=== PATIENT | male | born 1980 | race Caucasian/White ===

== ENCOUNTER → 2022-10-11 14:57 | Outpatient (CLI) | payer BC, SELFPAY ==
--- NOTE | ~2022-10-11 | XR_ITS ---
EXAMINATION: XR chest 2V DATE: 10/11/2022 15:12 INDICATION: Cough, unspecified. TECHNIQUE: Frontal and lateral views of the chest were obtained on 3 radiographs. COMPARISON: Chest single view 02/22/2015 FINDINGS: There is no pneumonia, pleural effusion, or pneumothorax. The heart size is normal. IMPRESSION: 1. No acute cardiopulmonary disease. Reviewed, dictated and finalized at location A. T OFFICE ATTENDANT
== END ==
PROVIDERS: PCP Family Medicine; Visit Provider Family Medicine
DX: R05.9 Cough, unspecified (principal)
CPT/HCPCS: 71046

== ENCOUNTER 2023-12-17 08:00 | Emergency (ER) | payer BC, SELFPAY ==
[2023-12-17 08:05] VITALS: BP 116/80; PULSE 130; RESP 20; TEMP 36.3; O2SAT 100
--- NOTE | 2023-12-17 08:05 | ED.GENADULT ---
HPI - General Adult General Chief complaint: Skin/Abscess/Foreign Body Stated complaint: Abscess Source: patient, RN notes reviewed and old records reviewed Mode of arrival: ambulatory Limitations: no limitations History of Present Illness HPI narrative: 43-year-old male patient presents to [facility] with complaint of abscess to perineal area this started several days ago. Patient was seen by primary care physician on 12/15/2023 and started on doxycycline and instructed to go to the ER for worsening symptoms. Patient states pain is worsening making it difficult to sit or walk. Related Data Allergies Allergy/AdvReac Type Severity Reaction Status Date / Time amoxicillin Allergy Unknown Flu like Verified 12/17/23 08:46 symptoms Usyhsfi-CPD-TuO Reductase Allergy Unknown elevated Verified 12/17/23 08:46 Inhibitor LFT's [Tiauxwp-Brq-Emc Reductase Inhibitor] bupropion AdvReac eye pain Verified 12/17/23 08:46 Review of Systems Constitutional: Constitutional: Reports no additional constitutional complaints, Denies body ache(s), Denies chills, Denies fatigue, Denies fever(s) and Denies headache(s) Eyes: Eyes: Reports no additional eye complaints and Denies blurry vision ENT: Reports system reviewed and no additional complaints, except as documented, Denies vertigo, Denies dizziness, Denies ear discharge, Denies otalgia, Denies facial pain, Denies headache(s), Denies nasal congestion, Denies nasal discharge, Denies sinus pain, Denies sinus pressure and Denies sore throat Cardiovascular: Cardiovascular: Reports no additional cardiovascular complaints, Denies chest pain, Denies chest pain at rest, Denies rapid heart rate and Denies dyspnea Respiratory: Respiratory: Reports no additional respiratory complaints, Denies chest congestion, Denies cough, Denies pain on inspiration, Denies pain with cough and Denies dyspnea Gastrointestinal: Gastrointestinal: Denies abdominal pain, Denies diarrhea, Denies nausea and Denies vomiting Genitourinary: Comments: abscess and perineal area Integumentary/Breasts: Skin/Breast: Reports furuncle and Denies rash Neurologic: Reports system reviewed and no additional complaints, except as documented, Denies vertigo, Denies dizziness and Denies headache(s) Endocrine: Endocrine: Denies fatigue PMFSH Past Medical History Medical History Depression with anxiety Dyslipidemia Vitamin D deficiency Surgical History Surgical History History of ankle surgery 1998- ORIF of left ankle fracture Family History Family History Father Family history of diabetes mellitus in first degree relative Diabetes mellitus Social History Social History Smoking status: Never smoker Alcohol intake: current Alcohol use details: occasionally Substance use: never Substance use type: does not use Lack of Transportation: No Lack of Food: Never True Current Housing: I Have Housing Concerned About Future Housing: No Difficulty Paying Gas/Electric Bills: No Difficulty Paying for Meds: No Currently Unemployed: No Education: Master's Degree or Higher Difficulty w/ Childcare or Family Care: No Living arrangements: with family Additional living arrangements comments: and Son Occupation/Education: occupation Gender identity (if verbalized by the patient): Male Sexual Orientation (if Verbalized by the Patient): Straight or Heterosexual Spiritual care concerns: No Agree to blood products: Yes Comments At the time of my signature, I reviewed and agree with the nursing past medical, surgical, social, and family history. There is no relevant family history pertinent to the patient complaint. Exam Const: General: cooperative, healthy
== END 2023-12-17 08:53 | disposition short-term general hospital (02) ==
PROVIDERS: Emergency Provider Registered Nurse; PCP Family Medicine
DX: L02.215 Cutaneous abscess of perineum (principal); E78.5 Hyperlipidemia, unspecified
CPT/HCPCS: 99212; G0463

== ENCOUNTER 2023-12-17 08:44 | Emergency (ER) | payer BC, SELFPAY ==
--- NOTE | ~2023-12-17 | CT_ITS ---
EXAMINATION: CT abdomen pelvis w con DATE: 12/17/2023 10:13 INDICATION: Perianal versus perineal abscess TECHNIQUE: Computed tomography (CT) of the abdomen and pelvis was performed with 100 mL Omnipaque-350 intravenous contrast. Automated exposure control and iterative reconstruction technique were employe d. The dose-length product was 699.56 mGy-cm. COMPARISON: None FINDINGS: Respiratory motion and mild dependent atelectasis in the lower lungs. Heart size is normal. No perica rdial or pleural effusion. Liver, gallbladder, spleen, pancreas, bilateral adrenal glands and kidneys are normal. Bladder is normal. Bowels including the appendix are normal. There is a relatively super ficial loculated peripherally enhancing subcutaneous perianal abscess along the anterior margin of th e anus which measures 4.2 x 3.5 x 3.2 cm. No evident transgression of the external inguinal sphincter or involvement of the deeper intersphincteric space. There is additional region of phlegmonous villaseñor e without organized peripheral which extends an additional 3.8 cm anteriorly from the abscess in the perineal subcutaneous fat and which measures 1.5 cm left to right and 2.7 cm craniocaudally. No evide nt involvement of the scrotum or penis. No evident soft tissue gas to suggest necrotizing fasciitis. No free intraperitoneal gas or fluid or intra-abdominal/pelvic abscess. No pathologically enlarged ab dominal or pelvic lymphadenopathy. Mild lower lumbar levocurvature with mild spondylosis. IMPRESSION: 1. 4.2 x 3.5 x 3.2 cm superficial anterior perianal abscess. Reviewed, dictated and finalized at location A. R OPERATOR
[2023-12-17 08:51] VITALS: BP 124/93; PULSE 70; RESP 20; TEMP 36.4; O2SAT 100
--- NOTE | 2023-12-17 09:10 | ED.SKABFB ---
HPI - Skin/Abscess/Foreign Bdy General Chief complaint: Skin/Abscess/Foreign Body Stated complaint: abscess Time Seen by Provider: 12/17/23 08:49 History of Present Illness HPI narrative: This is a 43-year-old male, with history of hyperlipidemia, who presents emergency department complaining painful abscess of the rectum. The patient states 5 days ago, he developed a small painful nodule at the rectum. He was seen by primary care doctor and started on doxycycline. Since then, the since grown and become significantly more painful. He now rates his pain 9/10, described as sharp and pressure-like. This is associated with flu-like symptoms. He was seen at an urgent care today and referred for evaluation. Related Data Allergies Allergy/AdvReac Type Severity Reaction Status Date / Time amoxicillin Allergy Unknown Flu like Verified 12/17/23 08:46 symptoms Dettfzz-IWV-GsC Reductase Allergy Unknown elevated Verified 12/17/23 08:46 Inhibitor LFT's [Cagkvzi-Aoh-Vcb Reductase Inhibitor] bupropion AdvReac eye pain Verified 12/17/23 08:46 Review of Systems Review of Systems: CONSTITUTIONAL: Subjective fevers, sweats and chills CARDIOVASCULAR: Denies chest pain, palpitations, or edema. RESPIRATORY: Denies cough or dyspnea. GASTROINTESTINAL: perirectal pain and swelling Denies abdominal pain, nausea, vomiting, or diarrhea. GENITOURINARY: Denies dysuria or hematuria. SKIN: Denies rash or itching. MUSCULOSKELETAL: Denies back pain, joint pain, or myalgia. NEUROLOGIC: Denies headache, numbness, dizziness, or weakness. PSYCHIATRIC: Denies anxiety or depression. [facility] Past Medical History Medical History Depression with anxiety Dyslipidemia Vitamin D deficiency Surgical History Surgical History History of ankle surgery 1998- ORIF of left ankle fracture Family History Family History Father Family history of diabetes mellitus in first degree relative Diabetes mellitus Social History Social History Smoking status: Never smoker Alcohol intake: current Alcohol use details: occasionally Substance use: never Substance use type: does not use Lack of Transportation: No Lack of Food: Never True Current Housing: I Have Housing Concerned About Future Housing: No Difficulty Paying Gas/Electric Bills: No Difficulty Paying for Meds: No Currently Unemployed: No Education: Master's Degree or Higher Difficulty w/ Childcare or Family Care: No Living arrangements: with family Additional living arrangements comments: and Son Occupation/Education: occupation Gender identity (if verbalized by the patient): Male Sexual Orientation (if Verbalized by the Patient): Straight or Heterosexual Spiritual care concerns: No Agree to blood products: Yes Exam Narrative: GENERAL: Well-developed, well-nourished, and in no acute distress. diaphoretic HEAD: Normocephalic, atraumatic. EYES: PERRLA and EOMI. CHEST: Clear to auscultation. No respiratory distress. No wheezes rales or rhonchi HEART: Tachycardic with regular rhythm. No murmur heard. Normal peripheral pulses. ABDOMEN: Soft, nontender, nondistended, normal active bowel sounds. : Tender, fluctuant mass in the perineum, extending from the anus at the 12 o'clock position approximately 5cm into the perineum. There is no palpable crepitus EXTREMITIES: Normal range of motion. No edema. SKIN: Warm, dry, no rash. NEURO: Alert and oriented x3. No focal deficit. Moving all 4 limbs spontaneously PSYCH: Normal mood and affect. Course Course Emergency Course: 13:35 - White blood cell count elevated at 13.1. CBC otherwise unremarkable. Labs demonstrate creatinine elevation of 1.6, consistent with dehydratio
[2023-12-17] MEDS: SODIUM CHLORIDE 0.9% IV 2,000 ML 999 ML IV CONT (09:42)
[2023-12-17] MEDS: MORPHINE SULFATE (*CRX) 4 MG/ML INJ IV PUSH ×2 (09:43→12:25)
[2023-12-17] MEDS: ONDANSETRON INJ 4 MG/2 ML VIAL IV PUSH (09:43)
[2023-12-17 10:08] LABS: Basophils Percent Auto 0.2 % (0.2-1.2); Eosinophils Absolute Auto 0.1 K/mm3 (0-0.3); Eosinophils Percent Auto 0.4 % (0-4.4); Hematocrit 50.9 % (42.0-52.0); Hemoglobin 17.4 g/dL (14.0-18.0); Immature Granulocyte Absolute 0.05 K/mm3 (0.00-0.031); Immature Granulocyte Percent A 0.4 % (0-0.5); Lymphocytes Absolute Auto 1.52 K/mm3 (0.9-3.2); Lymphocytes Percent Auto 11.6 % (18.3-44.2); Mean Corpuscular HGB Conc 34.2 g/dl (32-36); Mean Corpuscular Hemoglobin 29.2 pg (26-34); Mean Corpuscular Volume 85.4 fl (80-100); Mean Platelet Volume 8.8 fl (7.4-10.4); Monocytes Absolute Auto 1.3 K/mm3 (0.1-0.6); Monocytes Percent Auto 9.8 % (2.6-8.5); Neutrophils Absolute Auto 10.2 K/mm3 (1.3-6.7); Neutrophils Percent Auto 77.6 % (45.5-73.1); Platelet Count Result 259 k/mm3 (150-375); Red Blood Count 5.96 M/mm3 (4.6-6.20); Red Cell Distribution Width 12.3 % (11.5-14.5); White Blood Count 13.1 K/mm3 (4.5-10.0)
[2023-12-17 10:08] LABS: Estimated CRCL calculation 58 ml/min; Estimated Glomerular Filt Rate 48
[2023-12-17 10:20] LABS: Lactic Acid Reflex 1.3 mmol/L (0.7-2.0)
[2023-12-17 10:20] LABS: INR 0.9; Prothrombin Time 12.4 Seconds (11.1-14.7)
[2023-12-17 10:26] LABS: Alanine Aminotransferase 24 U/L (6-50); Alkaline Phosphatase 75 U/L (38-126); Anion Gap 14 mmol/L (8-16); Aspartate Amino Transferase 24 U/L (17-59); Bilirubin,Total 0.7 mg/dL (0.2-1.3); Blood Urea Nitrogen 23 mg/dL (9-20); Calcium 10.4 mg/dL (8.4-10.2); Carbon Dioxide 27 mmol/L (22-30); Chloride 99 mmol/L (98-107); Estimated CRCL calculation 62 ml/min; Estimated Glomerular Filt Rate 51; Glucose 126 mg/dL (65-110); Sodium 140 mmol/L (137-145)
[2023-12-17 10:31] LABS: Potassium 3.8 mmol/L (3.4-5.0)
[2023-12-17] MEDS: CEFEPIME 2 GM/NS 50 ML 2 GM/50 ML BAG IVPB (10:37)
[2023-12-17] MEDS: metroNIDAZOLE 500 MG/ISO 100ML 500 MG/100 ML BAG 100 MG IVPB (10:40)
[2023-12-17 10:42] VITALS: BP 111/74; PULSE 77; RESP 18; TEMP 36.9; O2SAT 98
[2023-12-17] MEDS: VANCOMYCIN 1,250 MG/NS 250 ML 1,250 MG/250 ML BAG 166.67 MG IVPB (11:33)
[2023-12-17 12:53] VITALS: BP 107/55; PULSE 78; RESP 18; TEMP 37; O2SAT 98
[2023-12-17] MEDS: VANCOMYCIN 1,000 MG/NS 250 ML 1,000 MG/250 ML BAG 250 MG IVPB (13:40)
[2023-12-17 15:16] VITALS: BP 104/55; PULSE 67; RESP 18; TEMP 36.8; O2SAT 100
== END 2023-12-17 15:27 | disposition home or self-care (01) ==
PROVIDERS: Emergency Provider Preventive Medicine Aerospace Medicine; PCP Family Medicine
DX: K61.1 Rectal abscess (principal); E78.5 Hyperlipidemia, unspecified; E55.9 Vitamin D deficiency, unspecified; F41.8 Other specified anxiety disorders
CPT/HCPCS: 36415; 46040; 74177; 80053; 83605; 85025; 85610; 87040; 96365; 96366; 96367; 96375; 96376; 99284; J0692; J1836; J2270; J2405; J3370; J7030; Q9967

== ENCOUNTER 2025-02-23 08:03 | Emergency (ER) | payer BC, SELFPAY ==
[2025-02-23 08:16] VITALS: BP 98/75; PULSE 88; RESP 16; TEMP 35.9; O2SAT 99
--- NOTE | 2025-02-23 08:58 | ED_ITS ---
HPI - Skin/Abscess/Foreign Bdy General Chief complaint: Skin/Abscess/Foreign Body Stated complaint: Abscess Time Seen by Provider: 02/23/25 08:49 Source: patient Mode of arrival: ambulatory Limitations: no limitations History of Present Illness HPI narrative: Patient presents to clinic today with complaints of an abscess to his perineum x 2 days. He does report this is the third time that he had this happen. He has been taking Motrin for pain with minimal relief. Related Data Allergies Allergy/AdvReac Type Severity Reaction Status Date / Time amoxicillin Allergy Unknown Flu like Verified 02/23/25 08:19 symptoms Cwbefct-PWI-NyD Reductase Allergy Unknown elevated Verified 02/23/25 08:19 Inhibitor (Xozttnc-Ykf-Pqx LFT's Reductase Inhibitor) bupropion AdvReac eye pain Verified 02/23/25 08:19 Review of Systems Review of Systems: CONSTITUTIONAL: Denies body aches, fever, chills, or sweats. EYES: Denies visual changes, redness, or discharge. ENT: Denies rhinorrhea, congestion CARDIOVASCULAR: Denies chest pain, palpitations, or edema. RESPIRATORY: Denies cough or dyspnea. GASTROINTESTINAL: Denies abdominal pain, nausea, vomiting, or diarrhea. SKIN: ?Reports pain to perineum. MUSCULOSKELETAL: Denies back pain, joint pain, or myalgia. NEUROLOGIC: Denies headache, numbness, tingling, or weakness. All systems reviewed & are unremarkable except as noted in HPI and below PMFSH Past Medical History Medical History Vitamin D deficiency Dyslipidemia Depression with anxiety Surgical History Surgical History History of ankle surgery 1998- ORIF of left ankle fracture Family History Family History Father Family history of diabetes mellitus in first degree relative Diabetes mellitus Social History Social History Smoking status: Never smoker Alcohol intake: current Alcohol use details: occasionally Substance use: never Substance use type: does not use Lack of Transportation: No Lack of Food: Never True Current Housing: I Have Housing Concerned About Future Housing: No Difficulty Paying Gas/Electric Bills: No Difficulty Paying for Meds: No Currently Unemployed: No Education: Master's Degree or Higher Difficulty w/ Childcare or Family Care: No Living arrangements: with family Additional living arrangements comments: and Son Occupation/Education: occupation Gender identity (if verbalized by the patient): Male Sexual Orientation (if Verbalized by the Patient): Straight or Heterosexual Spiritual care concerns: No Agree to blood products: Yes Comments At time of signature, I have reviewed and agree with nursing past medical, surgical, social and family history unless otherwise noted. Please see nursing chart for further information. There is no relevant family history pertinent to the presenting complaint. Exam Narrative: GENERAL: Well-appearing HEAD: Normocephalic, atraumatic. NECK: Supple. No lymphadenopathy CHEST: Clear to auscultation. HEART: Regular rate and rhythm. SKIN: Warm, dry. 0.5cm abscess noted to left of perineal groove with no induration. Perineal groove tenderness noted. NEURO: ?Alert and oriented x3.? Course Course Level of Care: Express Care Visit Vital Signs Vital signs: Vital Signs Temperature 96.6 F L 02/23/25 08:16 Pulse Rate 88 02/23/25 08:16 Respiratory Rate 16 02/23/25 08:16 Blood Pressure 98/75 L 02/23/25 08:16 Pulse Oximetry 99 02/23/25 08:16 Temperature 96.6 F L 02/23/25 08:16 Pulse Rate 88 02/23/25 08:16 Respiratory Rate 16 02/23/25 08:16 Blood Pressure 98/75 L 02/23/25 08:16 Pulse Oximetry 99 02/23/25 08:16 Reviewed Transfer Transfered to: [place] Transfer comments: Pt is agreeable to transfer. Requests transfer to [facility] via private vehicle. Risks of transportation reviewed with pt including injury, worsening of condition and . will be driving pt; Report called to hospital, spoke with Dr. Fernandez , accepting physician. Pt is in stable condition at time of transfer. Advised to remain NPO and go directly to the hospital. MDM - Skin/Abscess/Foreign Bdy MDM Narrative Medical decision making narrative: Discussed physical exam findings with patient. Due to location and severity, advised patient to go to ER. Patient agreeable and would like to go to [facility]. Differential Diagnosis Differential diagnosis: Likely abscess of skin or subcutaneous tissue and marisa lulitis Critical Care Time Critical Care Time Critical Care Time: No Discharge Plan Discharge Clinical Impression: Perineal abscess Patient Disposition: Acute Care Hospital Condition: Stable Patient Language: Kenyan Prescriptions: No Action atorvastatin [Lipitor] 10 mg tablet 10 mg PO QHS Qty: 90 1RF buspirone 5 mg tablet 5 mg PO BID PRN (Reason: anxiety) Qty: 180 1RF allopurinol 100 mg tablet 100 mg PO DAILY Qty: 90 1RF propranolol 10 mg tablet 10 mg PO BID PRN (Reason: social anxiety) Qty: 180 0RF Follow-up/Referrals: PHYSICIAN,PBX OPERATOR [Primary Care Provider] -
== END 2025-02-23 09:00 | disposition short-term general hospital (02) ==
DX: L02.215 Cutaneous abscess of perineum (principal); E78.5 Hyperlipidemia, unspecified; F41.8 Other specified anxiety disorders
CPT/HCPCS: 99212; G0463

== ENCOUNTER 2025-02-23 09:15 | Observation (INO) | payer BC, SELFPAY ==
--- NOTE | ~2025-02-23 | CT_ITS ---
EXAMINATION: CT abdomen pelvis w con DATE: 02/23/2025 10:51 INDICATION: Perineal abscess TECHNIQUE: Computed tomography (CT) of the abdomen and pelvis was performed with 100 mL Omnipaque-350 intravenous contrast. Automated exposure control and iterative reconstruction technique were employe d. The dose-length product was 442.07 mGy-cm. COMPARISON: None FINDINGS: Mild dependent atelectasis in bilateral lower lobes. Heart size is normal. No pericardial or pleural effusion. Liver, gallbladder, spleen, pancreas, bilateral adrenal glands and kidneys are normal. Norm al retrocecal appendix. Bowels are normal with no obstruction. 1.8 x 1.3 x 1.8 cm superficial subcuta neous abscess along the anterior margin of the anus which appears to remain superficial to the stonecutter hand al sphincter. No free intraperitoneal gas or fluid. No pathologically enlarged abdominal or pelvic ly mphadenopathy. Minimal lumbar lower thoracic spondylosis. IMPRESSION: 1. 1.8 x 1.8 x 1.3 cm superficial perianal abscess. Reviewed, dictated and finalized at location A.
--- OUTSIDE RECORDS SUMMARY | 2025-02-23 09:17 | XMS_ITS | Encounter Summary ---
Author Organization [facility] Address [address] [place] [address] Care Team Providers Care Scrap Shear Operator Name Role Phone Ramirez Marcus MD Primary Care Provider [phone] Encounter Details Date Type Department Care Team (Late st Contact Info) Description 12/14/2023 Lab Requisition [facility] - DermPath Lab [address] [place] [id number] Agnes Cook MD [address] [facility] [address] [place] [address] Social History Tobacco Use Types Packs/Day Years Used Date Smoking Tobacco: Never Assessed Sex and Gender Information Value Date Recorded Sex Assigned at Male 06/07/2021 8:09 PM CDT Legal Sex Male 11:37 AM SHOW HOST/HOSTESS Gender Identity Male 06/07/2021 8:09 PM CDT Sexual Orientation Straight 06/07/2021 8: 09 PM CDT documented as of this encounter Plan of Treatment Not on file documented as of this encounter Procedures Procedure Name Priority Date/Time Associated Diagnosis Comments DERMATOPATHOLOGY Routine 12/14/2023 8:58 AM SHOW HOST/HOSTESS documented in this encounter Results * DERMATOPATHOLOGY (12/14/2023 8:58 AM SHOW HOST/HOSTESS) Case Report Dermatopathology Report Case: [id number] Authorizing Provider: Agnes Cook MD Collected: 12/14/2023 08:58 AM Ordering Location: [facility] DermPath Lab Received: 12/15/2023 06:45 AM Pathologist: Katherin Rodrigues MD Specimen: Skin, scalp 4 1:03 PM [facility] DERMATOPATHOLOGY LABORATORY Final Diagnosis Specimen A. SKIN, scalp: TRICHILEMMAL (PILAR) CYST (L72.12) 4 1:03 PM [facility] DERMATOPATHOLOGY LABORATORY Clinical History Pilar Cyst 4 1:03 PM [facility] DERMATOPATHOLOGY LABORATORY Gross Description Specimen A: Received is one formalin filled container labeled with the patient's name and designated scalp. The specimen consists of a 4x4x9 mm piece of skin. The specimen is serially sectioned and a account services representative section is submitted in cassette 1. Jar 1. 4 1:03 PM [facility] DERMATOPATHOLOGY LABORATORY Microscopic Description Specimen A. SKIN, scalp: Sections show a cyst that is lined by stratified squamous epithelium that shows trichilemmal keratinization (no granular layer). There is homogeneous pink keratin within the cyst. 1:03 PM [facility] DERMATOPATHOLOGY LABORATORY Disclaimer An external and internal positive and negative controls are appropriate for the histochemical, immunohistochemical and immunofluorescence stain(s) in this case (if any), except where stated explicitly. The performance characteristics of the stain(s) cited in this report were developed and its performance characteristic determined by the Dermatopathology Laboratory at [facility], directed by Dr. Emmanuel Otero. These tests need not be, and therefore are not, approved by the [place] Food and Drug Administration. The tests are used for clinical purposes. Billing Codes Specimen Charges Stain Charges 06920 1 4 1:03 PM [facility] DERMATOPATHOLOGY LABORATORY Embedded Images 4 1:03 PM [facility] DERMATOPATHOLOGY LABORATORY Pathology/Cytolo gy TISSUE SPECIMEN FROM SKIN / Unknown 12/14/2023 8:58 AM SHOW HOST/HOSTESS 12/15/2023 6:45 AM SHOW HOST/HOSTESS us Agnes Cook MD LAB - PATHOLOGY/CYTOLOGY ORD ERABLES Final Result DERMATOPATHOLOGY LABORATORY [facility] - Department of Dermatology [facility] Medicine [facility] [facility] 3rd [address] [phone] documented in this encounter Visit Diagnoses Not on filedocumented in this encounter Care Teams Scrap Shear Operator Relationship Specialty Start Date End Date Ramirez Marcus MD [address] [place] [address] PCP - General 07/20/18 documented as of this encounter
--- OUTSIDE RECORDS SUMMARY | 2025-02-23 09:17 | XMS_ITS | Encounter Summary ---
Author Organization [facility] Address [address] [facility] [place] [address] Care Team Providers Care Yarn Man Name Role Phone Ramirez Marcus MD Primary Care Provider [phone] Encounter Details Date Type Department Care Team (Late st Contact Info) Description 07/23/2018 Lab Requisition [facility] Care DermPath Lab [address] [facility], [place] [address] Sarah Rios DO [address] [facility] [address] [place] [address] Social History Tobacco Use Types Packs/Day Years Used Date Smoking Tobacco: Never Assessed Sex and Gender Information Value Date Recorded Sex Assigned at Male 06/07/2021 8:09 PM CDT Legal Sex Male 11:37 AM SECURITY ATTENDANT Gender Identity Male 06/07/2021 8:09 PM CDT Sexual Orientation Straight 06/07/2021 8: 09 PM CDT documented as of this encounter Plan of Treatment Not on file documented as of this encounter Procedures Procedure Name Priority Date/Time Associated Diagnosis Comments DERMATOPATH TECHNICAL REPORT Routine 07/20/2018 12:00 AM CDT documented in this encounter Results * DERMATOPATH TECHNICAL REPORT (07/20/2018 12:00 AM CDT) Case Report Dermatopathology Report Case: [id number] Authorizing Provider: Sarah Rios DO Collected: 07/20/2018 12:00 AM Pathologist: Onelia Ruggiero MD Received: 07/23/2018 06:02 AM Specimen: Skin, left shoulder 12:38 PM CDT DERMATOPATHOLOGY LABORATORY Clinical History Blue nevus vs SK vs MM. Irregular color. 12:38 PM CDT DERMATOPATHOLOGY LABORATORY Gross Description Specimen A: Received is one formalin filled container labeled with the patient's name and designated left shoulder. The specimen consists of a shave measuring [id number]. Jar 0. [facility] performed the technical component only. 12:38 PM CDT DERMATOPATHOLOGY LABORATORY Embedded Images 12:38 PM T DERMATOPATHOLOGY LABORATORY DISCLAIMER An external and internal positive and negative controls are appropriate for the histochemical, immunohistochemical and immunofluorescence stain(s) in this case (if any), except where stated explicitly. The performance characteristics of the stain(s) cited in this report were developed and its performance characteristic determined by the Dermatopathology Laboratory at [facility]. These tests need not be, and therefore are not, approved by the [place] Food and Drug Administration. The tests are used for clinical purposes. 12:38 PM [facility] DERMATOPATHOLOGY LABORATORY Pathology/Cytolog y TISSUE SPECIMEN FROM SKIN / Unknown 07/20/2018 07/23/2018 6:02 AM CDT us Sarah Rios DO LAB - PATHOLOGY/CYTOLOGY ORDERABLES Final Result DERMATOPATHOLOGY LABORATORY [facility] - Department of Dermatology [address] [place] [address], 5th Floor Lab [address] [phone] documented in this encounter Visit Diagnoses Not on filedocumented in this encounter Care Teams Yarn Man Relationship Specialty Start Date End Date Ramirez Marcus MD [address] [place] [address] PCP - General 07/20/18 documented as of this encounter
--- OUTSIDE RECORDS SUMMARY | 2025-02-23 09:17 | XMS_ITS | Clinical Summary ---
Author Organization [facility] Address [address] [place] [address] Care Team Providers Care Rehabilitation Inspector Name Role Phone Mukund Quispe MD Primary Care Provider [phone] Social History Tobacco Use Types Packs/Day Years Used Date Smoking Tobacco: Never Assessed Sex and Gender Information Value Date Recorded Sex Assigned at Not on file Legal Sex Male 12:45 PM GRAPHIC DESIGN INTERN Gender Identity Not on file Sexual Orientation Not on file Plan of Treatment Not on file Care Teams Rehabilitation Inspector Relationship Specialty Start Date End Date Mukund Quispe MD PCP - General Reproductive Endocrinology and Infertility 09/07/20
--- OUTSIDE RECORDS SUMMARY | 2025-02-23 09:17 | XMS_ITS | Clinical Summary ---
Author Organization [facility] Address [address] [place] [address] Care Team Providers Care Streetcar Conductor Name Role Phone Unavailable Primary Care Provider Unavailabl e Social History Tobacco Use Types Packs/Day Years Used Date Smoking Tobacco: Never Assessed Sex and Gender Information Value Date Recorded Sex Assigned at Not on file Legal Sex Male 6:33 PM CDT Gender Identity Not on file Sexual Orientation Not on file Plan of Treatment Health Maintenance Due Date Last Done Comments Annual Physical 1984 Hepatitis C 1999 DTaP, Tdap and Td Vaccines ( 1 - Tdap) 2000 Hepatitis B Vaccines (1 of 3 - 19+ 3-dose series) 2000 COVID-19 Vaccine (2023-2 5 season) 2024 HPV Vaccines Aged Out No longer eligi ble based on patient's age to complete this topic Meningococcal B Vaccine Aged Out No l onger eligible based on patient's age to complete this topic Meningococcal Vaccine Aged Out No janice kristy eligible based on patient's age to complete this topic Pneumococcal Vaccine: Pediat rics (0 to 5 Years) and At-Risk Patients (6 to 49 Years) Aged Out No longer eligible b ased on patient's age to complete this topic RSV Immunizations Under 20 Months Aged Out No longer eligible based on patient's age to complete this topic
--- OUTSIDE RECORDS SUMMARY | 2025-02-23 09:17 | XMS_ITS | Encounter Summary ---
Author Organization [facility] Address [address] [facility] [place] [address] Care Team Providers Care Dam Worker Name Role Phone Ramirez Marcus MD Primary Care Provider [phone] Encounter Details Date Type Department Care Team (Late st Contact Info) Description 11/28/2019 Lab Requisition [facility] [address] [facility], [place] [phone] Sarah Rios DO [address] [facility] 3 [place] [address] Social History Tobacco Use Types Packs/Day Years Used Date Smoking Tobacco: Never Assessed Sex and Gender Information Value Date Recorded Sex Assigned at Male 06/07/2021 8:09 PM CDT Legal Sex Male 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 Gender Identity Male 06/07/2021 8:09 PM CDT Sexual Orientation Straight 06/07/2021 8: 09 PM CDT documented as of this encounter Plan of Treatment Not on file documented as of this encounter Procedures Procedure Name Priority Date/Time Associated Diagnosis Comments DERMATOPATHOLOGY Routine 11/27/2019 12:0 0 AM LABOR STANDARDS DIRECTOR documented in this encounter Results * DERMATOPATHOLOGY (11/27/2019 12:00 AM LABOR STANDARDS DIRECTOR) Case Report Dermatopathology Report [id number]: [id number] Authorizing Provider: Sarah Rios DO Collected: 11/27/2019 12:00 AM Ordering Location: [facility] Received: 11/28/2019 09:51 AM Pathologist: Bita Otero MD Specimen: Skin, scalp 0 3:29 PM [facility] DERMATOPATHOLOGY LABORATORY Final Diagnosis Specimen A. SKIN, scalp: TRICHILEMMAL (PILAR) CYST WITH CALCIFICATION (L72.12) 0 3:29 PM LABOR STANDARDS DIRECTOR DERMATOPATHOLOGY LABORATORY Clinical History R/O cyst. 0 3:29 PM [facility] DERMATOPATHOLOGY LABORATORY Gross Description Specimen A: Received is one formalin filled container labeled with the patient's name and designated scalp. The specimen consists of a [id number] excision, bisected. Jar 0+. 0 3:29 PM [facility] DERMATOPATHOLOGY LABORATORY Microscopic Description Specimen A. SKIN, scalp: Sections show a cyst that is lined by stratified squamous epithelium that shows trichilemmal keratinization (no granular layer). There is homogeneous pink keratin and aggregates of homogenous amorphous basophilic material consistent with calcium within the cyst. 0 3:29 PM LABOR STANDARDS DIRECTOR DERMATOPATHOLOGY LABORATORY Disclaimer An external and internal positive and negative controls are appropriate for the histochemical, immunohistochemical and immunofluorescence stain(s) in this case (if any), except where stated explicitly. The performance characteristics of the stain(s) cited in this report were developed and its performance characteristic determined by the Dermatopathology Laboratory at [facility], directed by Dr. Emmanuel Otero. These tests need not be, and therefore are not, approved by the [place] Food and Drug Administration. The tests are used for clinical purposes. Billing Codes Specimen Charges Stain Charges 67301 1 0 3:29 PM LABOR STANDARDS DIRECTOR DERMATOPATHOLOGY LABORATORY Embedded Images 0 3:29 PM LABOR STANDARDS DIRECTOR DERMATOPATHOLOGY LABORATORY Pathology/Cytolog y TISSUE SPECIMEN FROM SKIN / Unknown 11/27/2019 11/28/2019 9:51 AM LABOR STANDARDS DIRECTOR us Sarah Riso DO LAB - PATHOLOGY/CYTOLOGY ORDERABLES Final Result DERMATOPATHOLOGY LABORATORY [facility] - Department of Dermatology [address] [facility], 5th Floor Lab [address] [phone] documented in this encounter Visit Diagnoses Not on filedocumented in this encounter Care Teams Dam Worker Relationship Specialty Start Date End Date Ramirez Marcus MD [address] [place] [address] PCP - General 07/20/18 documented as of this encounter
--- OUTSIDE RECORDS SUMMARY | 2025-02-23 09:17 | XMS_ITS | Referral Summary ---
Author Organization 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
--- OUTSIDE RECORDS SUMMARY | 2025-02-23 09:17 | XMS_ITS | Clinical Summary ---
Author Organization [facility] Address [address] [facility] [place] [address] Care Team Providers Care Mold Making Plastics Sheets Supervisor Name Role Phone Ramirez Marcus MD Primary Care Provider [phone] Source Comments [facility],non-owned Affiliates and Associated Physician Practices is amultiple site organization consisting of ambulatory clinics and hospital sitesin [place], [place], [place] and [place]. This disclosure is being madepursuant to the Care Everywhere program and may not contain all information available regarding this patient. 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 Gender Identity Male 06/07/2021 8:09 PM CDT Sexual Orientation Straight 06/07/2021 8: 09 PM CDT Last Filed Vital Signs Vital Sign Reading Time Taken Comments Blood Pressure 114/75 05/18/2017 8:50 AM CDT Pulse 71 05/18/2017 8:50 AM CDT Temperature 36.4 C (97.6 F) 05/18/2017 8:50 AM CDT Respiratory Rate - - Oxygen Saturation - - Inhaled Oxygen Concentration - - Weight 91.6 kg (202 lb) 05/18/2017 8:50 AM CDT Height 180.3 cm (5' 11 ) 05/18/2017 8:50 AM CDT Body Mass Index 28.17 05/18/2017 8:50 AM CDT Plan of Treatment Health Maintenance Due Date Last Done Comments LIPID TESTING 1981 HIV SCREENING 1996 HEPATITIS C SCREENING 04/04/1999 DTAP/TDAP/TD VACCINES (1 - Tdap) 2000 HEPATITIS B VACCINE (1 of 3 - 19+ 3-dose series) 2000 COVID-19 VACCINE (1 - 2023-2 5 season) 2024 DEPRESSION SCREENING 10/30/2024 INFLUENZA VACCINE (Season Ended) 2025 08/01/20 22 ZOSTER VACCINE (1 of 2) 2031 HIB VACCINE Aged Out No longer eligi ble based on patient's age to complete this topic HPV VACCINE Aged Out No longer eligi ble based on patient's age to complete this topic MENINGOCOCCAL (Group B) VACC INE SHARED DECISION-MAKING Aged Out No longer eligibl e based on patient's age to complete this topic MENINGOCOCCAL GROUPS A/C/Y/W VACCINE Aged Out No longer eligible b ased on patient's age to complete this topic PNEUMOCOCCAL VACCINE Aged Out No long er eligible based on patient's age to complete this topic Insurance [employer] [facility] Address: [facility] [id number] [place] [address] [employer] Care Teams Mold Making Plastics Sheets Supervisor Relationship Specialty Start Date End Date Ramirez Marcus MD [address] [place] [address] PCP - General 07/20/18
[2025-02-23 09:18] VITALS: BP 113/95; PULSE 87; RESP 18; TEMP 36.5; O2SAT 98
--- OUTSIDE RECORDS SUMMARY | 2025-02-23 09:38 | XMS_ITS | Clinical Summary ---
Author Organization 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
--- OUTSIDE RECORDS SUMMARY | 2025-02-23 09:38 | XMS_ITS | Encounter Summary ---
Author Organization [facility] Address [address] [place] [address] Care Team Providers Care Marine Operations Coordinator Name Role Phone Ramirez Marcus MD Primary Care Provider [phone] Encounter Details Date Type Department Care Team (Late st Contact Info) Description 12/14/2023 Lab Requisition [facility] Lab [address] [facility], [place] [phone] Agnes Cook MD [address] [facility] 3 [place] [address] Social History Tobacco Use Types Packs/Day Years Used Date Smoking Tobacco: Never Assessed Sex and Gender Information Value Date Recorded Sex Assigned at Male 06/07/2021 8:09 PM CDT Legal Sex Male 11:37 AM CLIENT SERVICES ASSOCIATE Gender Identity Male 06/07/2021 8:09 PM CDT Sexual Orientation Straight 06/07/2021 8: 09 PM CDT documented as of this encounter Plan of Treatment Not on file documented as of this encounter Procedures Procedure Name Priority Date/Time Associated Diagnosis Comments DERMATOPATHOLOGY Routine 12/14/2023 8:58 AM CLIENT SERVICES ASSOCIATE documented in this encounter Results * DERMATOPATHOLOGY (12/14/2023 8:58 AM CLIENT SERVICES ASSOCIATE) Case Report Dermatopathology Report Case: [id number] Authorizing Provider: Agnes Cook MD Collected: 12/14/2023 08:58 AM Ordering Location: [facility] Received: 12/15/2023 06:45 AM Pathologist: Katherin Rodrigues MD Specimen: Skin, scalp 4 1:03 PM [facility] DERMATOPATHOLOGY LABORATORY Final Diagnosis Specimen A. SKIN, scalp: TRICHILEMMAL (PILAR) CYST (L72.12) 4 1:03 PM [facility] DERMATOPATHOLOGY LABORATORY Clinical History Pilar Cyst 4 1:03 PM [facility] DERMATOPATHOLOGY LABORATORY Gross Description Specimen A: Received is one formalin filled container labeled with the patient's name and designated scalp. The specimen consists of a 4x4x9 mm piece of skin. The specimen is serially sectioned and a medicare sales representative section is submitted in cassette 1. Jar 1. 4 1:03 PM [facility] DERMATOPATHOLOGY LABORATORY Microscopic Description Specimen A. SKIN, scalp: Sections show a cyst that is lined by stratified squamous epithelium that shows trichilemmal keratinization (no granular layer). There is homogeneous pink keratin within the cyst. 1:03 PM [facility] DERMATOPATHOLOGY LABORATORY Disclaimer An external and internal positive and negative controls are appropriate for the histochemical, immunohistochemical and immunofluorescence stain(s) in this case (if any), except where stated explicitly. The performance characteristics of the stain(s) cited in this report were developed and its performance characteristic determined by the Dermatopathology Laboratory at [facility], directed by Dr. Emmanuel Otero. These tests need not be, and therefore are not, approved by the [place] Food and Drug Administration. The tests are used for clinical purposes. Billing Codes Specimen Charges Stain Charges 67262 1 4 1:03 PM [facility] DERMATOPATHOLOGY LABORATORY Embedded Images 4 1:03 PM [facility] DERMATOPATHOLOGY LABORATORY Pathology/Cytolo gy TISSUE SPECIMEN FROM SKIN / Unknown 12/14/2023 8:58 AM CLIENT SERVICES ASSOCIATE 12/15/2023 6:45 AM CLIENT SERVICES ASSOCIATE us Agnes Cook MD LAB - PATHOLOGY/CYTOLOGY ORD ERABLES Final Result DERMATOPATHOLOGY LABORATORY [facility] - Department of Dermatology [facility] [facility], 3rd Floor [address] [phone] documented in this encounter Visit Diagnoses Not on filedocumented in this encounter Care Teams Marine Operations Coordinator Relationship Specialty Start Date End Date Ramirez Marcus MD [address] [place] [address] PCP - General 07/20/18 documented as of this encounter
--- OUTSIDE RECORDS SUMMARY | 2025-02-23 09:38 | XMS_ITS | Clinical Summary ---
Author Organization [facility] Address [address] [place] [address] Care Team Providers Care Other Sports Coach Or Instructor Name Role Phone Unavailable Primary Care Provider [...]
--- OUTSIDE RECORDS SUMMARY | 2025-02-23 09:38 | XMS_ITS | Encounter Summary ---
Author Organization [facility] Address [address] [place] [address] Care Team Providers Care Research Staff Member Name Role Phone Ramirez Marcus MD Primary Care Provider [phone] Encounter Details Date Type Department Care Team (Late st Contact Info) Description 07/23/2018 Lab Requisition [facility] Care Derm[facility] Lab [address] [facility], [place] [address] Sarah Rios DO [address] [facility] [address] [place] [address] Social History Tobacco Use Types Packs/Day Years Used Date Smoking Tobacco: Never Assessed Sex and Gender Information Value Date Recorded Sex Assigned at Male 06/07/2021 8:09 PM CDT Legal 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 Jar 0. [facility] Dermatopathology Laboratory performed the technical component only. [...] characteristic determined by the Dermatopathology Laboratory at [facility]. These tests need not be, and therefore are not, approved by the [place] Food and Drug Administration. The tests are used for clinical purposes. 12:38 PM [facility]ER[facility]ORATORY Pathology/Cytolog y TISSUE SPECIMEN FROM SKIN / Unknown 07/20/2018 07/23/2018 6:02 AM CDT us Sarah Rios DO LAB - PATHOLOGY/CYTOLOGY ORDERABLES Final Result DERMATOPATHOLOGY LABORATORY [facility] - Department of Dermatology [address] [place] [address], 5th Floor Lab [address] [phone] documented in this encounter Visit Diagnoses Not on filedocumented in this encounter Care Teams Research Staff Member Relationship Specialty Start Date End Date Ramirez Marcus MD [address] [place] [address] PCP - General 07/20/18 documented as of this encounter
--- OUTSIDE RECORDS SUMMARY | 2025-02-23 09:38 | XMS_ITS | Referral Summary ---
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
--- OUTSIDE RECORDS SUMMARY | 2025-02-23 09:38 | XMS_ITS | Clinical Summary ---
Author Organization [facility] Address [address] [place] [place] [address] Care Team Providers Care Balance Sheet Analyst Name Role Phone Ramirez Marcus MD Primary Care Provider [phone] Source Comments [facility],non-owned Affiliates and Associated Physician Practices is amultiple site organization consisting of ambulatory clinics and hospital sitesin [place], [place], [place] and [place]. This disclosure is being madepursuant to the Care Everywhere program and may not contain all information available regarding this patient. Last updated 18.[facility] [employer] 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
--- OUTSIDE RECORDS SUMMARY | 2025-02-23 09:38 | XMS_ITS | Encounter Summary ---
Author Organization [facility] Address [address] [place] [address] Care Team Providers Care Pin Drafter Name Role Phone Ramirez Marcus MD Primary Care Provider [phone] Encounter Details Date Type Department Care Team (Late st Contact Info) Description 11/28/2019 Lab Requisition [facility] Lab [address] [facility], [place] [phone] Sarah Rios DO [address] [facility] 3 [place] [address] Social History Tobacco Use Types Packs/Day Years Used Date Smoking Tobacco: Never Assessed Sex and Gender Information Value Date Recorded Sex Assigned at Male 06/07/2021 8:09 PM CDT Legal Sex Male 11:37 AM STRATEGIC DEBRIEFING SPECIALIST Gender Identity Male 06/07/2021 8:09 PM CDT Sexual Orientation Straight 06/07/2021 8: 09 PM CDT documented as of this encounter Plan of Treatment Not on file documented as of this encounter Procedures Procedure Name Priority Date/Time Associated Diagnosis Comments DERMATOPATHOLOGY Routine 11/27/2019 12:0 0 AM STRATEGIC DEBRIEFING SPECIALIST documented in this encounter Results * DERMATOPATHOLOGY (11/27/2019 12:00 AM STRATEGIC DEBRIEFING SPECIALIST) Case Report Dermatopathology Report Case: [id number] Authorizing Provider: Sarah Rios DO Collected: 11/27/2019 12:00 AM Ordering Location: [facility] DermPath Lab Received: 11/28/2019 09:51 AM Pathologist: Bita Otero MD Specimen: Skin, scalp 0 3:29 PM [facility] DERMATOPATHOLOGY LABORATORY Final Diagnosis Specimen A. SKIN, scalp: TRICHILEMMAL (PILAR) CYST WITH CALCIFICATION (L72.12) 0 3:29 PM STRATEGIC DEBRIEFING SPECIALIST DERMATOPATHOLOGY LABORATORY Clinical History R/O cyst. 0 3:29 PM [facility] DERMATOPATHOLOGY LABORATORY Gross Description Specimen A: Received is one formalin filled container labeled with the patient's name and designated scalp. The specimen consists of a [id number] excision, bisected. Jar 0+. 0 3:29 PM [facility] DERMATOPATHOLOGY LABORATORY Microscopic Description Specimen A. SKIN, scalp: Sections show a cyst that is lined by stratified squamous epithelium that shows trichilemmal keratinization (no granular layer). There is homogeneous pink keratin and aggregates of homogenous amorphous basophilic material consistent with calcium within the cyst. 0 3:29 PM STRATEGIC DEBRIEFING SPECIALIST DERMATOPATHOLOGY LABORATORY Disclaimer An external and internal positive and negative controls are appropriate for the histochemical, immunohistochemical and immunofluorescence stain(s) in this case (if any), except where stated explicitly. The performance characteristics of the stain(s) cited in this report were developed and its performance characteristic determined by the Dermatopathology Laboratory at [facility], directed by Dr. Emmanuel Otero. These tests need not be, and therefore are not, approved by the [place] Food and Drug Administration. The tests are used for clinical purposes. Billing Codes Specimen Charges Stain Charges 96534 1 0 3:29 PM STRATEGIC DEBRIEFING SPECIALIST DERMATOPATHOLOGY LABORATORY Embedded Images 0 3:29 PM STRATEGIC DEBRIEFING SPECIALIST DERMATOPATHOLOGY LABORATORY Pathology/Cytolog y TISSUE SPECIMEN FROM SKIN / Unknown 11/27/2019 11/28/2019 9:51 AM STRATEGIC DEBRIEFING SPECIALIST us Sarah Rios DO LAB - PATHOLOGY/CYTOLOGY ORDERABLES Final Result DERMATOPATHOLOGY LABORATORY [facility] - Department of Dermatology [address] [facility], 5th Floor Lab [address] [phone] documented in this encounter Visit Diagnoses Not on filedocumented in this encounter Care Teams Pin Drafter Relationship Specialty Start Date End Date Ramirez Marcus MD [address] [place] [address] PCP - General 07/20/18 documented as of this encounter
--- NOTE | 2025-02-23 10:02 | ED.GENADULT ---
HPI - General Adult General Chief complaint: Skin/Abscess/Foreign Body Stated complaint: perirecal abscess Time Seen by Provider: 02/23/25 09:20 History of Present Illness HPI narrative: 44-year-old male with history of perineal abscess presents to the emergency department for evaluation for pain in the perineum over the last 2 days. Patient did have follow-up with urgent care today and was referred to the emergency department for further evaluation. Patient has had recurrent perianal abscesses. Patient is not diabetic has no underlying significant health issues. Patient is being treated for high cholesterol and high uric acid but has no underlying autoimmune disorders. Related Data Home Medications ?Medication ?Instructions ?Recorded ?Confirmed ?Last Taken ?Type allopurinol 100 mg tablet 100 mg PO QHS 02/23/25 02/23/25 02/22/25 History ibuprofen 200 mg tablet (Addaprin) 600 mg PO QID PRN fever or pain 02/23/25 02/23/25 02/23/25 History Allergies Allergy/AdvReac Type Severity Reaction Status Date / Time amoxicillin Allergy Unknown Flu like Verified 02/23/25 08:19 symptoms Mlsrogz-JMB-ZlI Reductase Allergy Unknown elevated Verified 02/23/25 08:19 Inhibitor (Flndhdb-Klm-Uan LFT's Reductase Inhibitor) bupropion AdvReac eye pain Verified 02/23/25 08:19 Review of Systems Review of Systems: All systems reviewed & are unremarkable except as noted in HPI and below PMFSH Past Medical History Medical History Vitamin D deficiency Dyslipidemia Depression with anxiety Surgical History Surgical History History of ankle surgery 1998- ORIF of left ankle fracture Family History Family History Father Family history of diabetes mellitus in first degree relative Diabetes mellitus Social History Social History Smoking status: Never smoker Alcohol intake: former Alcohol use details: occasionally Substance use: never Substance use type: does not use Do You Feel Safe in your Home?: Yes Lack of Transportation: No Lack of Food: Never True Current Housing: I Have Housing Concerned About Future Housing: No Difficulty Paying Gas/Electric Bills: No Difficulty Paying for Meds: No Currently Unemployed: No Education: Master's Degree or Higher Difficulty w/ Childcare or Family Care: No Living arrangements: with family Additional living arrangements comments: and Son Occupation/Education: occupation Gender identity (if verbalized by the patient): Male Sexual Orientation (if Verbalized by the Patient): Straight or Heterosexual Spiritual care concerns: No Agree to blood products: Yes Exam Narrative: APPEARANCE: Well appearing, no pain, no distress, well-nourished. HEAD: normocephalic, atraumatic. EYES: PERRLA/EOMI, conjunctivae clear. NOSE: Normal no drainage EARS:TMS clear with good light reflex. THROAT: Pharynx clear, no exudate. NECK: Supple. No adenopathy, no masses. RESPIRATORY: Airway patent, respirations nonlabored. Clear to auscultation bilaterally, no rales, rhonchi, wheezing. CARDIOVASCULAR: Regular rate and rhythm without murmurs rubs or gallops. ABDOMINAL: Soft, nontender, nondistended, normal bowel sounds MUSCULOSKELETAL: Moves all extremities. Strength/ROM intact, No edema, No calf tenderness. NEURO: Alert. Cranial nerves II through XII intact. Good gait. Good coordination SKIN: Mild tenderness to perineum with no signs of external abscess amenable to drainage. No fluctuance to palpation Course Vital Signs Vital signs: Vital Signs Temperature 97.7 F 02/23/25 09:18 Pulse Rate 87 02/23/25 09:18 Respiratory Rate 18 02/23/25 09:18 Blood Pressure 113/95 H 02/23/25 09:18 Pulse Oximetry 98 02/23/25 09:18 Oxygen Delivery Room Air 02/23/25 09:18 Temperature 97.4 F L 02/23/25 15:18 Pulse Rate 67 02/23/25 15:18 Respiratory Rate 17 02/23/25 15:18 Blood Pressure 101/46 L 02/23/25 15:18 Pulse Oximetry 98 02/23/25 15:18 Oxygen Delivery Room Air 02/23/25 09:18 Medical Decision Making MDM Narrative Medical decision making narrative: [age] old male presents to the emergency department for evaluation for a perianal abscess. Patient is currently afebrile with no leukocytosis hemoglobin 14.7. Patient's INR is 1.0. No abnormalities on the patient's CMP. CT scan does show a 1.8 x 1.8 x 1.3 cm abscess. No fluctuance or abscess was palpated at the perianal/perennial. Case was discussed with surgery and patient will be admitted for surgical evaluation on Monday. Patient was started on Cipro and Flagyl in the emergency department. Differential Diagnosis Differential Diagnosis: Perianal abscess, rectal abscess Vital Signs Vital Signs: Vital Signs Temperature 97.7 F 02/23/25 09:18 Pulse Rate 87 02/23/25 09:18 Respiratory Rate 18 02/23/25 09:18 Blood Pressure 113/95 H 02/23/25 09:18 Pulse Oximetry 98 02/23/25 09:18 Oxygen Delivery Room Air 02/23/25 09:18 Temperature 97.4 F L 02/23/25 15:18 Pulse Rate 67 02/23/25 15:18 Respiratory Rate 17 02/23/25 15:18 Blood Pressure 101/46 L 02/23/25 15:18 Pulse Oximetry 98 02/23/25 15:18 Oxygen Delivery Room Air 02/23/25 09:18 Lab Data Lab results reviewed: Yes I reviewed the patient's lab results. 02/23/25 10:07 02/23/25 10:07 Labs: Lab Results 02/23/25 Range/Units 10:07 WBC 10.0 (4.5-10.0) K/mm3 RBC 5.05 (4.6-6.20) M/mm3 Hgb 14.7 (14.0-18.0) g/dL Hct 44.5 (42.0-52.0) % MCV 88.1 (80-100) fl MCH 29.1 (26-34) pg MCHC 33.0 (32-36) g/dl RDW 12.6 (11.5-14.5) % Plt Count 171 (150-375) k/mm3 MPV 9.0 (7.4-10.4) fl Immature Gran % (Auto) 0.2 (0-0.5) % Neut % (Auto) 69.0 (45.5-73.1) % Lymph % (Auto) 18.1 L (18.3-44.2) % [place] % (Auto) 10.4 H (2.6-8.5) % Eos % (Auto) 2.1 (0-4.4) % Baso % (Auto) 0.2 (0.2-1.2) % Lymph # (Auto) 1.81 (0.9-3.2) K/mm3 [place] # (Auto) 1.0 H (0.1-0.6) K/mm3 Eos # (Auto) 0.2 (0-0.3) K/mm3 Baso # (Auto) 0.0 (0.0-0.1) K/mm3 Abs Immat Gran (auto) 0.02 (0.00-0.031) K/mm3 Absolute Neuts (auto) 6.9 H (1.3-6.7) K/mm3 Absolute Nucleated RBC 0.000 (0.0-0.012) K/mm3 Nucleated RBC % 0.0 (0.0-0.2) % PT 13.4 (11.1-14.7) Seconds INR 1.0 APTT 27.3 (22.3-36.8) Seconds Sodium 141 (137-145) mmol/L Potassium 4.4 (3.4-5.0) mmol/L Chloride 105 (98-107) mmol/L Carbon Dioxide 30 (22-30) mmol/L Anion Gap 6 (4-12) mmol/L BUN 14 D (9-20) mg/dL Creatinine 1.13 (0.7-1.3) mg/dL Estim Creat Clear Calc 80 ml/min Estimated GFR > 60 (59 - ) Glucose 107 (65-110) mg/dL Calcium 9.1 (8.4-10.2) mg/dL Total Bilirubin 0.8 (0.2-1.3) mg/dL AST 27 (17-59) U/L ALT 30 (6-50) U/L Alkaline Phosphatase 58 (38-126) U/L Total Protein 7.0 (6.3-8.2) g/dL Albumin 4.1 (3.5-5.1) g/dL Imaging Data Radiologist's impression: Impressions Abdomen/Pelvis CT 02/23/25 11:00 IMPRESSION: 1. 1.8 x 1.8 x 1.3 cm superficial perianal abscess. Discharge Plan Discharge Clinical Impression: Abscess, perianal Patient Disposition: Still a Patient Condition: Stable
[2025-02-23 10:12] LABS: Basophils Percent Auto 0.2 % (0.2-1.2); Eosinophils Absolute Auto 0.2 K/mm3 (0-0.3); Eosinophils Percent Auto 2.1 % (0-4.4); Hematocrit 44.5 % (42.0-52.0); Hemoglobin 14.7 g/dL (14.0-18.0); Immature Granulocyte Absolute 0.02 K/mm3 (0.00-0.031); Immature Granulocyte Percent A 0.2 % (0-0.5); Lymphocytes Absolute Auto 1.81 K/mm3 (0.9-3.2); Lymphocytes Percent Auto 18.1 % (18.3-44.2); Mean Corpuscular Hemoglobin 29.1 pg (26-34); Mean Corpuscular Volume 88.1 fl (80-100); Monocytes Percent Auto 10.4 % (2.6-8.5); Neutrophils Absolute Auto 6.9 K/mm3 (1.3-6.7); Platelet Count Result 171 k/mm3 (150-375); Red Blood Count 5.05 M/mm3 (4.6-6.20); Red Cell Distribution Width 12.6 % (11.5-14.5)
[2025-02-23] MEDS: CIPROFLOXACIN 400 MG/D5W 200ML 200 ML 200 MG IVPB (10:14)
[2025-02-23] MEDS: HYDROmorphone HCL INJ (*CRX) 2 MG/ML VIAL 1 MG IV PUSH (10:14)
[2025-02-23 10:24] LABS: Alanine Aminotransferase 30 U/L (6-50); Albumin Level 4.1 g/dL (3.5-5.1); Alkaline Phosphatase 58 U/L (38-126); Anion Gap 6 mmol/L (4-12); Aspartate Amino Transferase 27 U/L (17-59); Bilirubin,Total 0.8 mg/dL (0.2-1.3); Blood Urea Nitrogen 14 mg/dL (9-20); Calcium 9.1 mg/dL (8.4-10.2); Carbon Dioxide 30 mmol/L (22-30); Chloride 105 mmol/L (98-107); Estimated CRCL calculation 80 ml/min; Estimated Glomerular Filt Rate > 60; Glucose 107 mg/dL (65-110); Potassium 4.4 mmol/L (3.4-5.0); Sodium 141 mmol/L (137-145)
[2025-02-23 10:31] LABS: Partial Thromboplastin Time 27.3 Seconds (22.3-36.8); Prothrombin Time 13.4 Seconds (11.1-14.7)
[2025-02-23] MEDS: metroNIDAZOLE 500 MG/ISO 100ML 500 MG/100 ML BAG 100 MG IVPB (11:28)
--- NOTE | 2025-02-23 14:26 | ADMGEN ---
This patient, Pedro Franco, was admitted to Medical Room 345-01. Patient/family oriented to hospital policies and general routines including ID bracelet, bed and alarms, visiting hours, pain management, procedures, bathroom and other care routines, personal items, smoking policy, room service/diet, and visiting hours. Information on how to activate the Rapid Response Team has been discussed. Patient/Family are encouraged to report perceived risks to care and to ask questions if they do not understand what they are told or what they should do.
[2025-02-23 15:18] VITALS: BP 101/46; PULSE 67; RESP 17; TEMP 36.3; O2SAT 98
[2025-02-23] MEDS: HYDROmorphone HCL INJ (*CRX) 2 MG/ML VIAL 0.5 MG IV PUSH ×2 (15:18→21:07)
[2025-02-23 15:32] VITALS: BMI 26.4
[2025-02-23 20:34] VITALS: BP 112/56; PULSE 75; RESP 16; TEMP 38; O2SAT 100
[2025-02-23 22:00] VITALS: TEMP 38
[2025-02-23] MEDS: ACETAMINOPHEN 325 MG TABLET 650 MG PO (22:00)
[2025-02-23] MEDS: HYDROcodone/acetaminophen (*CRX) 5-325 MG TABLET 1 TAB PO (22:01)
--- NOTE | 2025-02-23 22:08 | P.CONIM_ITS ---
Assessment and Plan Assessment and plan (1) Abscess, perianal: Code(s): K61.0 - Anal abscess Status: Acute (2) Chronic gout: Qualifiers: Gout etiology: unspecified cause Gout site: toe Laterality: u nspecified laterality Presence of tophus: without tophus Qualified Code(s): M 1A.9XX0 - Chronic gout, unspecified, without tophus (tophi) Code(s): M1A.9XX0 - Chronic gout, unspecified, without tophus (tophi) Status: Acute (3) Depression with anxiety: Code(s): F41.8 - Other specified anxiety disorders Status: Acute Plan Patient has perianal abscess with mild fever but no other indicators to suggest sepsis and he appears euvolemic. Mild fever is not unexpected given the patient's perianal abscess. The concern is that the patient has had multiple perianal abscesses. He has had exposure to tub recently and had a prior abscess following using a hot tub. He has also been shaving the area as part of his grooming routine. These all factors that could have precipitated are in care [place] is risk for recurrent abscesses. Patient could also have underlying glands or inclusion cyst making him more prone to recurrent abscesses. Given the does not get recurrent infections in other locations and he is euglycemic underlying immune disorders is less likely. The patient is not diabetic and does not have any other comorbidities that would increase his risk.. Patient white count heart rate and respiratory rate are within normal limits. Patient is already on appropriate antibiotic therapy with Zosyn. Patient is on Tylenol as needed for fever and Zofran as needed for nausea and pain management with IV opiates per primary service. Will check blood cultures to rule out hematologic bacterial spread but given his benign clinical picture this seems less likely. Repeat CBC and electrolyte panel have already been ordered for a.m.. Will resume the patient's home medications for gout he has no evidence of acute flare. Will resume the patient's home BusPar as needed for anxiety. The patient is stable from medical perspective. Hospitalist service will sign off. Feel free to contact us if development of acute concerns. DVT prophylaxis per primary service. HPI Date of Consult Consult date: 02/24/25 Requesting Physician: Andrey Luogn MD Primary Care Provider: PHYSICIAN NOT ON STAFF Consult Narrative Narrative: Pedro Franco is a 44 year old male with a past medical history of social anxiety, gout in prior perianal abscess who presented to the ER from [facility] due to rectal pain similar to his prior episodes of abscess. The patient reports that he had his 1st perirectal abscess about 4 years ago which was drained at bedside with local I&D. He had a recurrent perirectal abscess in November of last year about a week after he returned from vacation where he had been sitting in a hot tub which was also I&D in the ER and treated with oral antibiotics. He reports that this time he had also recently got back from vacation about a week ago. On the he began have not pain in his perineum in the same location that he had had prior abscesses. He tried Epsom salts baths which did not provide much relief for symptoms. He had also been taking ibuprofen. He reports that his pain is an 8/10 in intensity with any movement. He reports that the pain is a 10/10 in intensity if the area is manipulated. He has been having some chills at home. On arrival to the ER patient was afebrile. He denied having any nausea vomiting. He has not had any changes in bowel habits. He denies any localized trauma to the area. He does shave the area and did so within the last 2 weeks. He denies any history of diabetes or immunosuppression. He does not have any recurrent infections anywhere else on his body. He reports that his pain is better with the Kirvin and Dilaudid that are being provided. In the ER patient was started on antibiotic therapy with Cipro and Flagyl but was changed to Zosyn by the surgical service. The patient is alert orient x4 and is a extremely good historian. Review of Systems 2 Review of Systems: 12 systems were reviewed with pertinent positives and negatives per HPI. Except as documented in the HPI, all other systems were reviewed and are negative. The patient reported prior history of memory loss according to past medical history. At the time my evaluation patient is alert orient x4 and is a good historian. [facility] Past Medical History Medical History Gout Chronic gout Rosacea Memory loss Since 2017 Vitamin D deficiency Dyslipidemia Depression with anxiety Surgical History Surgical History History of ankle surgery 1998- ORIF of left ankle fracture Family History Family History Father Family history of diabetes mellitus in first degree relative Diabetes mellitus Social History Social History (Updated 02/24/25 @ 03:32 by Rebeca Tipton DO) Social History: He lives at home with his of 10 years and her 8-year-old son. He works in IT. He is a lifelong nonsmoker and does not use illicit substances. He reported that he drink heavily for about 10 years as a young man. But by the time use in his 30s he was only drinking alcohol on occasion in moderation. He reports that when he turned 41 he decided to stop drinking alcohol altogether and greens picker an exercise routine to have a overall healthier lifestyle. Code status: Full code Surrogate decision maker: Kaye () Smoking status: Never smoker Alcohol intake: former Alcohol use details: occasionally Substance use: never Substance use type: does not use Do You Feel Safe in your Home?: Yes Lack of Transportation: No Lack of Food: Never True Current Housing: I Have Housing Concerned About Future Housing: No Difficulty Paying Gas/Electric Bills: No Difficulty Paying for Meds: No Currently Unemployed: No Education: Master's Degree or Higher Difficulty w/ Childcare or Family Care: No Living arrangements: with family Additional living arrangements comments: and Son Occupation/Education: occupation Gender identity (if verbalized by the patient): Male Sexual Orientation (if Verbalized by the Patient): Straight or Heterosexual Spiritual care concerns: No Agree to blood products: Yes Meds Home Medications and Allergies Home Medications ?Medication ?Instructions ?Recorded ?Confirmed ?Type buspirone 5 mg tablet 5 mg PO BID PRN anxiety #180 tabs 12/06/24 02/23/25 Rx propranolol 10 mg tablet 10 mg PO BID PRN social anxiety 01/21/25 02/23/25 Rx #180 tabs atorvastatin 10 mg tablet (Lipitor) 10 mg PO QHS #90 tabs 01/28/25 02/23/25 Rx allopurinol 100 mg tablet 100 mg PO QHS 02/23/25 02/23/25 History ibuprofen 200 mg tablet (Addaprin) 600 mg PO QID PRN fever or pain 02/23/25 02/23/25 History Allergies Allergy/AdvReac Type Severity Reaction Status Date / Time amoxicillin Allergy Unknown Flu like Verified 02/23/25 08:19 symptoms Sxwqayo-SOS-WhQ Reductase Allergy Unknown elevated Verified 02/23/25 08:19 Inhibitor (Gqpmini-Nke-Prm LFT's Reductase Inhibitor) bupropion AdvReac eye pain Verified 02/23/25 08:19 Vital Signs Vital Signs - 24 hr 02/23/25 09:18 02/23/25 15:18 02/23/25 20:34 Temperature 97.7 F 97.4 F L 100.4 F H Pulse Rate 87 67 75 Respiratory Rate 18 17 16 Blood Pressure 113/95 H 101/46 L 112/56 L Pulse Oximetry 98 98 100 Oxygen Delivery Room Air 02/23/25 22:00 Temperature 100.4 F H Pulse Rate Respiratory Rate Blood Pressure Pulse Oximetry Oxygen Delivery Exam 2 Narrative: Weight 86 kg BMI 26.4 Const: Other: No acute distress, well-developed well-nourished, appears stated age, well groomed HENMT: Other: Mucous membranes are tacky, no oral pharyngeal erythema, head is normocephalic atraumatic Eyes: Other: Pupils are equal and reactive, no scleral icterus, no conjunctival pallor Neck: Other: No lymphadenopathy, no thyromegaly Resp: Other: Clear to auscultation bilaterally, no increased work of breathing Cardio: Other: Regular rate, regular rhythm, 2+ bilateral radial pedal pulses GI: Other: Soft, nontender, nondistended, positive bowel sounds : Other: The patient has area of tenderness and induration but no fluctuance in the posterior perineum. The areas exactly where he has a pale scar from prior incision and drainage. Skin: Other: Generally warm to touch, no diaphoresis, normal cap refill Neuro: Other: Alert oriented, speech is clear, no localizing neurologic deficits noted during the course of conversation Extrem: Other: No clubbing, cyanosis or edema Psych: Other: Appropriate mood and affect, pleasant and cooperative Results Labs 02/23/25 10:07 02/23/25 10:07 Labs: Laboratory Tests 02/23/25 10:07 WBC 10.0 RBC 5.05 Hgb 14.7 Hct 44.5 MCV 88.1 MCH 29.1 MCHC 33.0 RDW 12.6 Plt Count 171 MPV 9.0 Immature Gran % (Auto) 0.2 Neut % (Auto) 69.0 Lymph % (Auto) 18.1 L [place] % (Auto) 10.4 H Eos % (Auto) 2.1 Baso % (Auto) 0.2 Lymph # (Auto) 1.81 [place] # (Auto) 1.0 H Eos # (Auto) 0.2 Baso # (Auto) 0.0 Abs Immat Gran (auto) 0.02 Absolute Neuts (auto) 6.9 H Absolute Nucleated RBC 0.000 Nucleated RBC % 0.0 PT 13.4 INR 1.0 APTT 27.3 Sodium 141 Potassium 4.4 Chloride 105 Carbon Dioxide 30 Anion Gap 6 BUN 14 D Creatinine 1.13 Estim Creat Clear Calc 80 Estimated GFR > 60 Glucose 107 Calcium 9.1 Total Bilirubin 0.8 AST 27 ALT 30 Alkaline Phosphatase 58 Total Protein 7.0 Albumin 4.1 Hospitalist MIPS Advance Care Plan I have confirmed that the patient's Advanced Care Plan is present, code status is documented, or surrogate decision maker is listed in patient medical record.: Yes Medication Reconciliation I have utilized all available resources to obtain, update and review the patients current medications (includes all prescriptions, OTC, herbals, cannabis, and nutritional supplements).: Yes
[2025-02-23 23:00] VITALS: TEMP 37.2
[2025-02-23] MEDS: PIPERACILLN/TAZ 3.375GM/NS50ML 3.375 GM/50 ML BAG IVPB (23:00)
[2025-02-24] VITALS (14 sets, daily range): BP systolic 96–114; BP diastolic 43–72; PULSE 59–98; RESP 12–18; TEMP 36.2–37.2; O2SAT 98–100
[2025-02-24] MEDS: HYDROcodone/acetaminophen (*CRX) 5-325 MG TABLET 1 TAB PO ×3 (04:10→20:36)
[2025-02-24] MEDS: PIPERACILLN/TAZ 3.375GM/NS50ML 3.375 GM/50 ML BAG IVPB ×4 (06:03→23:27)
[2025-02-24] MEDS: HYDROmorphone HCL INJ (*CRX) 2 MG/ML VIAL 0.5 MG IV PUSH ×2 (08:08→23:26)
--- NOTE | 2025-02-24 10:13 | P.HP_ITS ---
H&P: HPI History of Present Illness Date/Time: 02/24/25 10:13 Chief Complaint: Perirectal pain Review of Systems Review of Systems: All systems reviewed & are unremarkable except as noted in HPI and below [facility] Past Medical History Medical History Gout Chronic gout Rosacea Memory loss Since 2017 Vitamin D deficiency Dyslipidemia Depression with anxiety Surgical History Surgical History History of incision and drainage Perirectal abscess History of ankle surgery 1998- ORIF of left ankle fracture Family History Family History Father Family history of diabetes mellitus in first degree relative Diabetes mellitus Social History Social History Social History: He lives at home with his of 10 years and her 8-year-old son. He works in IT. He is a lifelong nonsmoker and does not use illicit substances. He reported that he drink heavily for about 10 years as a young man. But by the time use in his 30s he was only drinking alcohol on occasion in moderation. 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 Code status: Full code Surrogate decision maker: Kaye () Smoking status: Never smoker Alcohol intake: former Alcohol use details: occasionally Substance use: never Substance use type: does not use Do You Feel Safe in your Home?: Yes Lack of Transportation: No Lack of Food: Never True Current Housing: I Have Housing Concerned About Future Housing: No Difficulty Paying Gas/Electric Bills: No Difficulty Paying for Meds: No Currently Unemployed: No Education: Master's Degree or Higher Difficulty w/ Childcare or Family Care: No Living arrangements: with family Additional living arrangements comments: and Son Occupation/Education: occupation Gender identity (if verbalized by the patient): Male Sexual Orientation (if Verbalized by the Patient): Straight or Heterosexual Spiritual care concerns: No Agree to blood products: Yes Meds Home Medications and Allergies Home Medications ?Medication ?Instructions ?Recorded ?Confirmed ?Type buspirone 5 mg tablet 5 mg PO BID PRN anxiety #180 tabs 12/06/24 02/23/25 Rx propranolol 10 mg tablet 10 mg PO BID PRN social anxiety 01/21/25 02/23/25 Rx #180 tabs atorvastatin 10 mg tablet (Lipitor) 10 mg PO QHS #90 tabs 01/28/25 02/23/25 Rx allopurinol 100 mg tablet 100 mg PO QHS 02/23/25 02/23/25 History ibuprofen 200 mg tablet (Addaprin) 600 mg PO QID PRN fever or pain 02/23/25 02/23/25 History Allergies Allergy/AdvReac Type Severity Reaction Status Date / Time amoxicillin Allergy Unknown Flu like Verified 02/23/25 08:19 symptoms Msvtasz-VSE-EkO Reductase Allergy Unknown elevated Verified 02/23/25 08:19 Inhibitor (Lojjbtl-Qkl-Yey LFT's Reductase Inhibitor) bupropion AdvReac eye pain Verified 02/23/25 08:19 Vital Signs Vital Signs - 24 hr 02/23/25 15:18 02/23/25 20:34 02/23/25 22:00 Temperature 97.4 F L 100.4 F H 100.4 F H Pulse Rate 67 75 Respiratory Rate 17 16 Blood Pressure 101/46 L 112/56 L Pulse Oximetry 98 100 Oxygen Delivery 02/23/25 23:00 02/24/25 00:00 02/24/25 04:17 Temperature 98.9 F 98.9 F 98.2 F Pulse Rate 59 L Respiratory Rate 16 Blood Pressure 114/64 Pulse Oximetry 98 Oxygen Delivery 02/24/25 08:00 Temperature Pulse Rate Respiratory Rate Blood Pressure Pulse Oximetry 98 Oxygen Delivery Room Air Exam Const: General: comfortable and no acute distress Nutritional Appearance: average body habitus Orientation/consciousness: patient oriented x3 HENMT: Head: normocephalic and atraumatic Ears: hearing grossly normal bilaterally Mouth: Yes moist mucous membranes Eyes: General: appearance normal, both eyes and all related structures Pupils: Equal, round and reactive pupils present Neck: Neck: normal visual inspection and full ROM Resp: Effort & Inspection: no respiratory distress Auscultation: clear to auscultation bilaterally Cardio: Rate: regular rate Rhythm: regular rhythm Peripheral pulses: Peripheral pulses 2+ throughout GI: Inspection: non-distended GI Palp: Yes Soft to palpation, No Tenderness to palpation present (GI), No Guarding due to palpation present (GI), Yes No hepatosplenomegaly present and No Rebound tenderness present Percussion: Yes normal to percussion Auscultation: normal bowel sounds Other: Perianal induration and swelling with erythema consistent with an abscess in the right anterior position extending towards the scrotum, but not involving, exquisitely tender, no opening or drainage. Digital rectal exam deferred due to pain. : Scrotum: scrotum normal Skin: General skin exam: normal color Neuro: General: moves all extremities and no focal motor deficits Speech: normal speech Motor exam (neuro): 5/5 motor strength present throughout Extrem: General: normal to inspection and no edema Psych: Mental Status: mental status grossly normal Attitude: cooperative Insight: Good insight present (Psych) Judgement: Good judgement present (Psych) H&P: Results Labs Labs: Short CBC 02/23/25 Range/Units 10:07 WBC 10.0 (4.5-10.0) K/mm3 Hgb 14.7 (14.0-18.0) g/dL Hct 44.5 (42.0-52.0) % Plt Count 171 (150-375) k/mm3 BMP 02/23/25 10:07 Sodium 141 Potassium 4.4 Chloride 105 Carbon Dioxide 30 BUN 14 D Creatinine 1.13 Glucose 107 Calcium 9.1 Liver Function 02/23/25 Range/Units 10:07 Total Bilirubin 0.8 (0.2-1.3) mg/dL AST 27 (17-59) U/L ALT 30 (6-50) U/L Alkaline Phosphatase 58 (38-126) U/L Albumin 4.1 (3.5-5.1) g/dL Imaging CT scan - abdomen: Radiologist's impression: ITS Impressions Abdomen/Pelvis CT 02/23/25 11:00 IMPRESSION: 1. 1.8 x 1.8 x 1.3 cm superficial perianal abscess. Assessment and Plan Assessment and plan (1) Abscess, perianal: Code(s): K61.0 - Anal abscess Status: Acute Assessment and Plan: This is the patient's third perirectal abscess in the past 10 years. It sounds like he had complete resolution of his last abscess about a year ago and has not had any intermittent symptoms since then. Continue IV antibiotics. Proceed to the OR for incision and drainage perianal abscess by Dr. Chanel. Description of the procedure, risks, benefits, alternatives and expected recovery were discussed with the patient. He agrees to proceed. Plan I have discussed the patient's case and plan of care with Dr. Chanel.
[2025-02-24] MEDS: LACTATED RINGERS 1,000 ML 30 ML IV CONT (11:30)
--- NOTE | 2025-02-24 12:11 | WPDHPUPDATE1 ---
History and Physical Update Update Date/Time: 02/24/25 12:11 History and Physical has been reviewed, including an updated exam of the patient. There are NO changes in the patient's condition. Risks, benefits, and alternatives have been discussed and questions answered. Patient agrees to proceed with procedure.
[2025-02-24] MEDS: BUPIVACAINE/EPINEPHRINE 0.5% 50 ML VIAL 18 ML INFILTRATE (12:31)
[2025-02-24] MEDS: LIDOCAINE 2% GEL UROJET 10 ML PKG MUCOUS MEM (12:34)
--- NOTE | 2025-02-24 13:21 | W.PM.PROC2 ---
Procedure Note - Detailed Date of Procedure 02/24/25 Pre-op Diagnosis recurrent perirectal abscess Post-op Diagnosis Other ( recurrent perianal abscess, fistula in ANO) Procedure Performed complex incision and drainage perirectal abscess, placement of seton drain for fistula in ano Surgeon Dora Chanel MD Anesthesia General and Local Indications 44-year-old male presenting with recurrent perirectal abscess Findings perirectal abscess anterior left with fistulous connection to the rectum in the anterior midline, seems to be superficial to the sphincteric complex Description of Procedure The patient was taken to the operating room and placed in the modified lithotomy position. After adequate induction of general anesthesia, the patient was prepped and draped in the normal sterile fashion. A time-out was then done to verify the patient's identity, as well as the procedure being performed. I began by doing a bilateral pudendal block. A digital rectal exam was done and I was able to note induration and fluctuance approximately 3 cm from the anal verge at the anterior midline. I then used anal speculum to examine the rectum which was noted to be unremarkable. I then made a incision over the most fluctuant area of this perirectal abscess. This was noted to be anterior to the left of the anal verge. Upon getting into the cavity, large amount of purulent drainage was noted. I then used a hemostat to bluntly dissect around the cavity and further loculations were broken up. Once completely drained, the cavity measured approximately 2 x 2 cm. Using a fistula probe, I was able to identify a fistulous tract between the cavity and the anal canal. This was noted at the area of the previous induration, fluctuance. Given the amount of induration, I was unsure of the involvement of the sphincteric complex. Given this finding, I decided to place a seton into this fistula tract. This was done with a red vessel loop. Once this was in position, the entire tract was open and draining. I then placed a piece of Gelfoam covered in lidocaine jelly into the rectum. Sterile dressing was then placed. The patient tolerated the procedure and was extubated postoperatively. He will be transferred to the recovery room in stable condition. Implants Seton drain Estimated Blood Loss 10 Drains Yes Packing Yes Pathology None sent Complications No immediate complications Condition Stable Disposition PACU [facility] Billing Surgery - Charge Forward: Surgery Billing
[2025-02-24] MEDS: LACTATED RINGERS 1,000 ML 150 ML IV CONT ×2 (13:52→20:36)
[2025-02-25] MEDS: LACTATED RINGERS 1,000 ML 150 ML IV CONT ×2 (02:31→09:40)
[2025-02-25] MEDS: diphenhydrAMINE HCl INJ 50 MG/ML VIAL IV PUSH (02:31)
[2025-02-25] MEDS: PIPERACILLN/TAZ 3.375GM/NS50ML 3.375 GM/50 ML BAG IVPB (05:18)
[2025-02-25] MEDS: HYDROcodone/acetaminophen (*CRX) 5-325 MG TABLET 1 TAB PO ×2 (05:18→10:15)
[2025-02-25 05:19] VITALS: BP 110/62; PULSE 63; RESP 16; TEMP 36.7; O2SAT 100
[2025-02-25 08:00] VITALS: O2SAT 100
[2025-02-25 09:24] VITALS: O2SAT 98
[2025-02-25] MEDS: diphenhydrAMINE HCl INJ 50 MG/ML VIAL 25 MG IV PUSH (10:13)
--- NOTE | 2025-02-25 13:04 | P.DS_ITS ---
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 Workup showed CT evidence of perianal abscess. He was admitted and started on broad-spectrum IV antibi otics. Hospital Course: Patient underwent complex incision and drainage perirectal abscess, placement of seton drain for fistula in ANO by Dr. Chanel on 02/24/2025. He was continued on IV antibiotics postoperatively. Diet was advanced as tolerated. Postop day 1, his perirectal pain and pressure had significantly improved. He is afebrile and pain is well controlled. After discussing with Dr. Chanel, he is stable for discharge with seton drain and on oral antibiotics today. Status at Discharge Functional status at discharge: independent ambulation Overall status at discharge: patient is progressing back to baseline Time Spent with Patient Time attestation: Total time spent providing and/or coordinating discharge services: Time spent: Greater than 30 minutes Exam Const: General: comfortable and no acute distress Orientation/consciousness: patient oriented x3 GI: Other: Perirectal abscess with seton drain in place, induration and erythema improved, scant serosanguineous drainage, much less tender DS: Data Data Completed and Pending Labs on day of discharge: Preliminary micro results at discharge 02/24/25 05:29 Blood Culture - Preliminary Blood 02/24/25 05:29 Blood Culture - Preliminary Blood Procedures/Treatments: Procedures Operation Date: 02/24/25 12:00 Actual Procedure Side Surgeon p Incision and Drainage Leena-Anal Abscess Not Applicable Dora Chanel MD Imaging Radiologist's impression: ITS Impressions Abdomen/Pelvis CT 02/23/25 11:00 IMPRESSION: 1. 1.8 x 1.8 x 1.3 cm superficial perianal abscess. Discharge Plan Discharge Attending physician on discharge: Dora Chanel Consulting providers: Lissy Seals Discharging Clinician: Leticia Worrell Anticipated Discharge Date/Time: 02/25/25 12:40 Patient Disposition: Home Activity: may shower and other - see discharge instructions Diet: high fiber Wound Care Instructions: change dressing daily Discharge Instructions: * Wound care: cover seton drain with gauze or an ABD pad, change at least once daily and anytime it is soiled. Gauze can be held in place with tape or mesh underwear. * Cleanse around drain either in the shower or with moist toilets after bowel movements. Drainage is expected, especially in the first week or two * Sitz bath 3 times daily and after each bowel movement * Continue with a high fiber diet and take Metamucil or a fiber supplement 1-2 times daily. Make sure to drink plenty of fluids to stay well hydrated. Take all measures to prevent constipation. * If no BM for 3 days, then take a dose of milk of magnesia or you may start Miralax daily until bowels are moving normally * No strenuous activity or heavy lifting for 2 weeks. Walking is encouraged and stairs are okay. * No driving while taking the narcotic pain medication * Avoid long periods of pressure to your rectum (i.e. sitting for long periods of time, long car rides, etc.) * You may take Tylenol or Ibrupofen over the counter as needed for pain. Pain medication was also sent to the pharmacy for moderate to sever pain to take only as needed. This is a narcotic pain medication. * If you develop increasing rectal pain or fevers, call the surgeon * Follow-up with Dr. Chanel in our office in 1-2 weeks. We will schedule the appointment and call you with a time and date. If you do not hear from the office in the next few days, please call. Patient Instructions: Antibiotic Form Patient Language: Citizen Of [place] Stand Alone Forms: General Discharge Information Follow-up/Referrals: Dora Chanel MD [Physician] - 2 Weeks Discharge Medications: New hydrocodone-acetaminophen 5-325 mg Tablet 1 tablet PO Q4-6H PRN (Reason: Pain Rated 4-6) Qty: 16 0RF ciprofloxacin HCl 500 mg tablet 500 mg PO Q12H Qty: 21 0RF metronidazole 500 mg tablet 500 mg PO Q8H Qty: 31 0RF Continued atorvastatin [Lipitor] 10 mg tablet 10 mg PO QHS Qty: 90 1RF ibuprofen [Addaprin] 200 mg tablet 600 mg PO QID PRN (Reason: fever or pain) allopurinol 100 mg tablet 100 mg PO QHS buspirone 5 mg tablet 5 mg PO BID PRN (Reason: anxiety) Qty: 180 1RF propranolol 10 mg tablet 10 mg PO BID PRN (Reason: social anxiety) Qty: 180 0RF Date of admission: 02/23/25 13:01 Primary Care Provider: Jerome Aiken Admitting Provider: Andrey Luong Attending physician on admission: Andrey Luong Condition: Stable Quality If No VTE Prophylaxis Answer both mechanical and pharmacologic: Reason no mechanical VTE proph: low risk/not indicated Reason no pharmacologic proph: low risk/not indicated
== END 2025-02-25 13:36 | disposition home or self-care (01) ==
LOC: ANHED 13:00 → ANH3MED 02-24 07:20
PROVIDERS: Admitting Provider Surgery; Emergency Provider Emergency Medicine; PCP Family Medicine; Visit Provider Surgery
PROC: (CPT 46040; principal; 2025-02-24 12:00)
DX: K61.0 Anal abscess (principal); F41.8 Other specified anxiety disorders; M1A.9XX0 Chronic gout, unspecified, without tophus (tophi); E78.5 Hyperlipidemia, unspecified; E55.9 Vitamin D deficiency, unspecified; R41.3 Other amnesia; L71.9 Rosacea, unspecified; Z79.899 Other long term (current) drug therapy; Z88.1 Allergy status to other antibiotic agents; Z88.8 Allergy status to other drugs, medicaments and biological substances
CPT/HCPCS: 46060; 36415; 74177; 80053; 85025; 85610; 85730; 87040; 96365; 96366; 96367; 96375; 99285; A9270; G0378; J0744; J1100; J1171; J1200; J1836; J2250; J2405; J2543; J2704; J3010; J7120; Q9967